=== PATIENT | female | born 1985 | race American Indian/Alaskan Native ===

== ENCOUNTER 2021-10-06 07:41 | Observation (INO) | payer OTHER ==
--- NOTE | 2021-09-30 11:58 | Anesthesia Consultation ---
Anesthesia Consult and Med Hx Date of service: 10/06/21 - Airway Anesthetic Teeth Evaluation: Good ROM Head & Neck: Adequate Mental/Hyoid Distance: Adequate Mallampati Class: Class II Intubation Access Assessment: Probably Good - Pulmonary Exam CTA: Yes - Cardiac Exam Cardiac Exam: RRR - Pre-Operative Health Status ASA Pre-Surgery Classification: ASA1 Proposed Anesthetic Plan: General Nerve Block: postop TAP prn - Pulmonary Hx Smoking: No Hx Asthma: No (childhood asthma, no inhaler use in many years) Hx Respiratory Symptoms: No - Cardiovascular System Hx Hypertension: No - Central Nervous System CVA: No - Endocrine Hx Renal Disease: No Hx Liver Disease: No Hx Insulin Dependent Diabetes: No Hx Non-Insulin Dependent Diabetes: No Hx Thyroid Disease: No - Other Systems Hx Obesity: No - Additional Comments Anesthesia Medical History Comments: No prior GA. No FHx anesthetic complications.
[2021-09-30 13:09] LABS: Hematocrit 41.7 % (30.3-42.9); Mean Corpuscular HGB Conc 34 % (30-34); Mean Corpuscular Volume 92 fl (79-97); Platelet Count 179 K/mm3 (140-440); Red Blood Count 4.55 M/mm3 (3.65-5.03); Red Cell Distribution Width 12.6 % (13.2-15.2)
[2021-09-30 13:30] LABS: Blood Urea Nitrogen 6 mg/dL (7-17); Calcium 9.1 mg/dL (8.4-10.2); Hemolysis Index 35
[2021-09-30 13:32] LABS: BUN/Creatinine Ratio 9
--- NOTE | 2021-10-01 19:58 | History and Physical Report ---
History of Present Illness Date of examination: 09/30/21 Date of admission: 10/05/2021 Chief complaint: pelvic pain. heavy bleeding History of present illness: Pt has heavy bleeding despite the mirena being in place, pelvic pressure, pain with sex depending on position and fullness of lower abdomen. Pt states she feeling a mass in lowere abdomen.Pt has h/o menomet that was resolved with the mirena but currently she is having monthly periods that are heavy with passing clots. Pt noted to have 7cm fundal fibroid on sonogram. She desires removal of uterus at this time. I advised pt and while the lavh is what is scheduled, she may need YOLY due to the size of the fibroid and inability to have enough exposure for vaginal removal. She expressed understanding and all questions were addressed and answered. Consents signed and placed on the chart. Mirena will be removed with the removal of the uterus. Past History : 4 Term Births: 3 Living Children: 3 Para: 3 Elect. Ab: 1 [employer] History Operations: Right knee 2006 ? infection 2006 ectopic Tubal Ligation Abnormal PAP: positive Infection History HIV Risk Eval: no Personal hx. of genital herpes: no Hx of STD: chlamydia Active Medications (reviewed today): IBUPROFEN 800 MG ORAL TABLET (IBUPROFEN) 1 po q6 hr prn pain IBUPROFEN () Current Allergies (reviewed today): No known allergies Past Medical History: Reviewed history from 11/26/2008 and no changes required: Negative Past Medical History Past Surgical History: Reviewed history from 01/30/2015 and no changes required: Right knee 2006 ? infection 2006 ectopic Tubal Ligation Family History Summary: Reviewed history Last on 01/04/2011 and no changes required:08/23/2021 General Comments - FH: Family History of Diabetes Family History of Hypertension No Family History of Breast Cancer No Family History of Cervical Cancer No Family History of Colon Cancer No Family History of Ovarvian Cancer Social History: Reviewed history from 08/17/2019 and no changes required: Vera guzman no e/t/d Patient is Smoking History: Patient currently smokes every day. Risk Factors: Smoked Tobacco Use: Former smoker Smokeless Tobacco Use: Never Passive Smoke Exposure: no HIV High Risk Behavior: no Exercise: no Seatbelt Use: 100 % PAP Smear History: Date of Last PAP Smear: 08/17/2021 Alcohol Use: no Drug Use: no Review of Systems General Denies fever, chills, sweats, anorexia, fatigue, weakness, malaise, weight loss and sleep disorder. Denies nausea, vomiting, headache, swelling of legs, abdominal pain, vaginal discharge, vaginal bleeding and contractions. Denies vaginal discharge, incontinence, dysuria, hematuria, urinary frequency, amenorrhea, menorrhagia, abnormal vaginal bleeding, pelvic pain, genital sores, decreased libido, painful periods, painful sex, urinary urgency, hot flashes, vaginal dryness, vaginal itching and vaginal odor. CV Denies chest pains, palpitations, syncope, dyspnea on exertion, orthopnea, PND and peripheral edema. Resp Denies cough, dyspnea at rest, excessive sputum, hemoptysis, wheezing and pleurisy. GI Denies nausea, vomiting, diarrhea, constipation, change in bowel habits, abdominal pain, melena, hematochezia, jaundice, gas/bloating, indigestion/heartburn, dysphagia and odynophagia. Endo Denies cold intolerance, heat intolerance, polydipsia, polyphagia, polyuria and unusual weight change. Breast Denies left breast lump, right breast lump, nipple discharge, bloody discharge from nipple, breast pain, abnormal mammogram and breast enlargement. MS Denies back pain, joint pain, joint swelling, muscle cramps, muscle weakness, stiffness, arthritis, sciatica, restless legs, leg pain at night and leg pain with exertion. Derm Denies rash, itching, dryness and suspicious lesions. Neuro Denies paralysis, paresthesias, headache, seizures, tremors, vertigo, transient blindness, frequent falls, frequent headaches and difficulty walking. Psych Denies depression, anxiety, irritability and mood swings. Eyes Denies blurring, diplopia, irritation, discharge, vision loss, eye pain and photophobia. ENT Denies earache, ear discharge, tinnitus, decreased hearing, nasal congestion, nosebleeds, sore throat and hoarseness. Allergy Denies urticaria, allergic rash, hay fever and recurrent infections. Heme Denies abnormal bruising, bleeding and enlarged lymph nodes. Past History Past Medical History: other (see hpi) Past Surgical History: other (see hpi) [employer] History: other (see hpi) Family/Genetic History: other (see hpi) Social history: other (see hpi) Medications and Allergies Allergies Allergy/AdvReac Type Severity Reaction Status Date / Time No Known Allergies Allergy Unverified 09/29/21 10:57 Home Medications Medication Instructions Recorded Confirmed Last Taken Type Tylenol 2 tab PO BID 09/29/21 09/29/21 Unknown History Active Meds: Active Medications Acetaminophen (Acetaminophen 500 Mg Tab) 1,000 mg PO PREOP CHELLE Stop: 10/06/21 23:01 Celecoxib (Celecoxib 200 Mg Cap) 200 mg PO PREOP NR Stop: 10/06/21 23:01 Gabapentin (Gabapentin 300 Mg Cap) 300 mg PO PREOP NR Stop: 10/06/21 23:01 Lactated Ringer's (Lactated Ringers) 1,000 mls @ 100 mls/hr IV DIRECT CHELLE Stop: 10/06/21 23:59 Midazolam HCl (Midazolam 2 Mg/2 Ml Inj) 2 mg IV PREOP NR Stop: 10/06/21 23:01 Scopolamine (Scopolamine Transdermal Patch 72 Hr) 1 each TD PREOP NR Stop: 10/06/21 23:01 Review of Systems All systems: negative - Vital Signs Vital signs: Vital Signs Temp Pulse Resp BP Pulse Ox 98.9 F 84 20 137/93 99 09/30/21 11:00 09/30/21 11:00 09/30/21 11:00 09/30/21 11:00 09/30/21 11:00 Temp Pulse Resp BP Pulse Ox 98.9 F 84 20 137/93 99 09/30/21 11:00 09/30/21 11:00 09/30/21 11:00 09/30/21 11:00 09/30/21 11:00 - Physical Exam Cardiovascular: Normal S1, Normal S2 Lungs: Positive: Clear to auscultation, Normal air movement Abdomen: Positive: normal appearance. Negative: soft, distention, tenderness, guarding Genitourinary (Female): Positive: other (deferred until EUA) Results Result Diagrams: 09/30/21 00:01 09/30/21 10:54 All other labs normal. Assessment and Plan - Patient Problems (1) Fibroid uterus Status: Acute Plan to address problem: -admit and prepare for lavh, iud removal -consents signed and placed on the chart. (2) Menorrhagia with regular cycle Status: Acute Plan to address problem: see #2 (3) Dysmenorrhea Status: Acute Plan to address problem: see #2
[~2021-10-06 07:41] MED LIST: ACETAMINOPHEN 500 MG TAB PO SCH; CELECOXIB 200 MG CAP PO NR; GABAPENTIN 300 MG CAP PO NR; LACTATED RINGERS 1,000 ML IV SCH; MIDAZOLAM 2 MG/2 ML INJ IV NR; SCOPOLAMINE TRANSDERMAL PATCH 72 HR TD NR; ceFAZolin/Water 2 GM/20 ML 2 GM/20 ML SYRINGE IV NR
[2021-10-06] MEDS ORDERED: HYDROmorphone 1 MG/1 ML INJ IV PRN (08:27)
[2021-10-06] MEDS ORDERED: ONDANSETRON 4 MG/2 ML INJ IV PRN (08:27)
--- NOTE | 2021-10-06 08:27 | Anesthesia Day of Surgery ---
Anesthesia Day of Surgery - Day of Surgery Patient Examined: Yes Patient H&P Reviewed: Yes Patient is NPO: Yes
[2021-10-06] MEDS ORDERED: dexAMETHasone 20 MG/5 ML VIAL ONE (09:15)
[2021-10-06] MEDS ORDERED: ONDANSETRON 4 MG/2 ML INJ ONE (09:15)
[2021-10-06] MEDS ORDERED: ROCURONIUM 50 MG/5 ML INJ IV ONE (09:15)
[2021-10-06] MEDS ORDERED: fentaNYL 100 MCG/2 ML INJ ONE ×2 (09:16→12:15)
[2021-10-06] MEDS ORDERED: HYDROmorphone 1 MG/1 ML INJ ONE ×2 (09:16→12:42)
[2021-10-06] MEDS ORDERED: propofoL 200 MG/20 ML VIAL IV ONE (09:16)
[2021-10-06] MEDS ORDERED: BUPIVACAINE/PF (0.5%) 5 MG/1 ML 30 ML VIAL INFILTRATI ONE ×2 (11:16→12:25)
[2021-10-06] MEDS ORDERED: SODIUM CHLORIDE 0.9% 100 ML ONE (11:16)
[2021-10-06] MEDS ORDERED: CITRIC ACID-SOD CITRATE 500 ML IV ONE (11:16)
[2021-10-06] MEDS ORDERED: VASOPRESSIN 20 UNIT/1 ML INJ ONE (11:16)
[2021-10-06] MEDS ORDERED: CITRIC ACID-SOD CITRATE SOLN 500 ML IV SOLN IV ONE (12:26)
[2021-10-06] MEDS ORDERED: SODIUM CHLORIDE 0.9% IRRIG SOLN 2000 ML IR ONE (12:26)
[2021-10-06] MEDS ORDERED: SODIUM CHLORIDE 0.9% IRR 1,500 ML BOTTLE IR ONE (12:26)
[2021-10-06] MEDS ORDERED: VASOPRESSIN 20 UNIT/1 ML INJ IM ONE (12:27)
[2021-10-06] MEDS ORDERED: SODIUM CHLORIDE 0.9% 100 ML IVPB IV ONE (12:27)
[2021-10-06] MEDS ORDERED: GLYCOPYRROLATE 0.4 MG/2 ML INJ ONE ×2 (13:33)
[2021-10-06] MEDS ORDERED: NEOSTIGMINE 10MG/10 ML INJ MDV ONE (13:33)
[2021-10-06] MEDS ORDERED: SUGAMMADEX SODIUM 200 MG/2 ML VIAL IV ONE (13:42)
--- NOTE | 2021-10-06 13:46 | Operative Report ---
Operative Report Operative Report: Date of procedure: 10/06/2021 Pre-operative diagnosis: Uterine fibroids Dysmenorrhea Menorrhagia Post-operative diagnosis: Same Procedure name(s): Laparoscopic assisted vaginal hysterectomy Bilateral salpingectomy Removal of intrauterine device Surgeon: Malinda Hart MD Alterations Manager: Dr. Cinthia Manuel Anesthesia: General EBL: 600 mL; 250 mL of Cell Saver given back Urine output: 200 mL of clear urine out at the end of the procedure Fluids: 2500 mL Findings: Enlarged uterus with an approximately 8 cm fundal fibroid noted. Consistency of uterus with that of adenomyosis. Normal ovaries bilaterally. No fallopian tubes identified. Indications: Patient presents with history of menorrhagia unresponsive to Mirena IUD. Patient desired definitive therapy. All risk benefits and alternatives were discussed with the patient. Consents were signed and placed on the chart. Procedure: Patient was taken to the operating room where she was placed under general endotracheal anesthesia. She was then prepped and draped in sterile fashion. It was at this point that the large [employer] uterine manipulator was placed inside of the uterus after the uterus was sounded to approximately 12 cm. Guardado catheter was also placed at this time. Attention was then turned to the umbilicus in which a supraumbilical incision was made. Under direct visualization the 5 mm trocar was placed inside the peritoneum the peritoneum was then insufflated. As at this point that the laparoscopic portion of the procedure was performed. 2 lateral 5 mm ports were also placed under direct visualization. Using the tripolar instrument the upper pedicles were cauterized and transected to the including round ligament with excellent hemostasis noted bilaterally. Attention was then turned vaginally. A weighted speculum was placed into the vagina and the cervix was grasped with a single-tooth tenaculum 2. The cervix was then injected circumferentially with Pitressin. The cervix was then circumferentially incised with the scalpel and the bladder dissected off of the pubovesical cervical fascia anteriorly with a sponge stick and Metzenbaum scissors. The same procedure was performed posteriorly and the posterior cul-de-sac was entered into sharply without difficulty. At this point a Dariusz Clamp was placed over the uterosacral ligaments on either side. These were then transected and suture ligated with 0 Vicryl. Hemostasis was assured. The cardinal ligaments were then clamped on both sides transected and suture ligated in similar fashion. The uterine arteries were then serially clamped with Dariusz clamps transected and suture ligated on both sides. Excellent hemostasis was visualized. After it was clear that the uterus had been completely from all pedicles the uterus was removed vaginally intact with cervix intact. The vaginal cuff angles were closed with figure of 8 stitches of 0 Vicryl on both sides. The peritoneum was incorporated in the stitching of the vaginal cuff. A series of interrupted figure of 8 sutures using 0 Vicryl were used to close the entire vaginal cuff. Excellent hemostasis was noted. The vagina was then irrigated copiously. Attention was then turned laparoscopically at which time. Again all pedicles were noted to be hemostatic. The ureters were identified bilaterally with peristalsis noted bilaterally. Surgicel powder was placed along the vaginal cuff. After several minutes the area was then irrigated. Excellent hemostasis was noted. All instruments were then removed from the abdomen and the vagina. All gas was released from the abdomen. The abdominal incisions were closed using 4-0 Monocryl. All of the abdominal incisions were injected with Marcaine without epi. Patient tolerated the procedure well sponge lap and needle counts were all correct 3 the patient was taken to the recovery room awake and in stable condition.
[2021-10-06] MEDS ORDERED: IBUPROFEN 800 MG TAB PO PRN (13:47)
[2021-10-06] MEDS ORDERED: MORPHINE 4 MG/1 ML INJ IV PRN (13:47)
[2021-10-06] MEDS ORDERED: ACETAMINOPHEN 325 MG TAB PO PRN (13:47)
[2021-10-06] MEDS ORDERED: ceFAZolin/NS 1 GM/50 ML 1 GM/50 ML BAG IV SCH (14:00)
[2021-10-06] MEDS: HYDROmorphone 1 MG/1 ML INJ IV PRN ×2 (14:17→14:27)
--- NOTE | 2021-10-06 14:33 | Post Anesthesia Evaluation ---
- Post Anesthesia Evaluation Patient Participated: Yes Airway Patent: Yes Stable Respiratory Function: Yes Nausea/Vomiting: No Temp > 96.8F: Yes Pain Manageable: Yes Adequeate Hydration: Yes Anesthesia Complications: No Block Receding Appropriately: Not Applicable Patient on Ventilator: No
[2021-10-06] MEDS: KETOROLAC 30 MG/1 ML INJ IV PRN ×2 (16:23→22:24)
--- NOTE | 2021-10-06 19:56 | Event Note ---
Date: 10/06/21 Called by RN and pt c/o discomfort and pressure with cath in. Advised it can be removed and place hat in toilet so that accurate UOP can be documented q hour. She expressed understanding and questions were addressed and answered.
[2021-10-07] MEDS: HYDROcodone/ACETAMINOPHEN 5-325 MG TAB PO PRN ×2 (02:15→09:31)
[2021-10-07 05:36] LABS: Hematocrit 30.1 % (30.3-42.9); Hemoglobin 10.3 gm/dl (10.1-14.3)
[2021-10-07] MEDS: KETOROLAC 30 MG/1 ML INJ IV PRN (06:27)
[2021-10-07 08:55] VITALS: BP 97/64
--- NOTE | 2021-10-07 09:31 | Discharge Summary ---
Providers - Providers Date of Admission: 10/06/21 13:47 Date of discharge: 10/07/21 Attending physician: CLAUDIO HERNANDEZ Primary care physician: [employer] Hospitalization Reason for admission: other (LAVH) Procedure: other (LAVH) Procedure details: SEE OP NOTES Incision: normal, dry, intact Hospital course: Pt s/p LAvh with IUD removal prior to procedure. Post op course has not been complicated. Will d/c home this am. Condition at discharge: Good Disposition: 01 HOME / SELF CARE / HOMELESS - Discharge Diagnoses (1) Fibroid uterus Status: Acute (2) Menorrhagia with regular cycle Status: Acute (3) Dysmenorrhea Status: Acute Plan - Discharge Medications Prescriptions: Docusate Sodium [Colace] 100 mg PO BID PRN #60 capsule PRN Reason: Constipation Ibuprofen [Motrin 800 MG tab] 800 mg PO Q8HR PRN #30 tablet PRN Reason: Pain, Moderate (4-6) oxyCODONE /ACETAMINOPHEN [Percocet 5/325] 1 tab PO Q4HR #30 tab - Provider Discharge Summary Activity: routine, no sex for 6 weeks, no heavy lifting 4 weeks, no strenuous exercise Diet: routine Instructions: routine Additional instructions: [] Smoking cessation referral if applicable(refer to patient education folder for contact #) [] Refer to [facility] Booklet Call your doctor immediately for: * Fever > 100.5 * Heavy vaginal bleeding ( >1 pad per hour) * Severe persistent headache * Shortness of breath * Reddened, hot, painful area to leg or breast * Drainage or odor from incision. * Keep incision clean and dry at all times and follow doctor's instructions regarding bathing/showering - Follow up plan Follow up: PRIMARY CARE, [Primary Care Provider] - 7 Days CLAUDIO HERNANDEZ MD [Staff Physician] - 7 Days Forms: [facility] Discharge Summary
--- NOTE | 2021-10-07 09:31 | Progress Note ---
Assessment and Plan - Patient Problems (1) Fibroid uterus Status: Acute (2) Menorrhagia with regular cycle Status: Acute (3) Dysmenorrhea Status: Acute (4) S/P laparoscopic assisted vaginal hysterectomy (LAVH) Status: Acute Plan to address problem: routine post op care d/c home this am f/u in the office in one week. Subjective - Subjective Date of service: 10/07/21 Principal diagnosis: POD#1 S/P LAVH Interval history: pt doing well. Tolerating a regular diet. Pain is well controlled. Pt desires d/c home today.Post op course has not been complicated. Patient reports: appetite normal, voiding normally, pain well controlled, ambulating normally, no dizzy ambulation Objective - Vital Signs Latest vital signs: Vital Signs Temp Pulse Resp Resp BP BP Pulse Ox 10/07/21 08:29 99 10/07/21 08:26 97.8 F 94 H 18 97/64 97 10/07/21 06:27 18 10/07/21 04:58 98.8 F 107 H 18 108/72 95 10/07/21 02:15 18 10/07/21 00:37 98.1 F 104 H 18 116/81 97 10/06/21 22:24 18 10/06/21 22:00 18 18 98 10/06/21 20:19 97.9 F 109 H 20 119/86 98 10/06/21 15:10 97.6 F 87 16 154/97 99 10/06/21 14:45 97.4 F L 73 16 140/90 100 10/06/21 14:30 72 16 148/92 100 10/06/21 14:15 70 16 142/92 100 10/06/21 14:05 79 16 156/97 100 10/06/21 14:00 87 18 147/93 100 10/06/21 13:56 97.2 F L 84 18 155/97 100 10/06/21 09:35 18 Intake and Output 10/06/21 10/07/21 10/07/21 22:59 06:59 14:59 Intake Total 358 120 120 Output Total 300 Balance 358 -180 120 Intake: Oral 358 120 120 Output: Urine 300 Void 300 Other: Total, Intake Amount 120 120 120 Total, Output Amount 100 Voiding Method Toilet Toilet Toilet - Exam Breasts: Present: deferred Cardiovascular: Present: Regular rate, Normal S1, Normal S2 Lungs: Present: Clear to auscultation, Normal air movement Abdomen: Present: normal appearance, soft, normal bowel sounds. Absent: distention, tenderness, guarding Deep Tendon Reflex Grade: Normal +2 Incision: Present: normal, dry, intact - Labs Labs: Abnormal lab results 10/07/21 Range/Units 05:03 Hct 30.1 L (30.3-42.9) %
--- NOTE | 2021-10-07 13:57 | Post Anesthesia Evaluation ---
- Post Anesthesia Evaluation Patient Participated: Yes Airway Patent: Yes Stable Respiratory Function: Yes Nausea/Vomiting: No Temp > 96.8F: Yes Pain Manageable: Yes Adequeate Hydration: Yes Anesthesia Complications: No Block Receding Appropriately: Yes Patient on Ventilator: No Other Comments: patient being discharged home
== END 2021-10-07 10:33 | disposition home or self-care (01) ==
LOC: OR 07:41 → OB 13:47
PROVIDERS: ADMIT Obstetrics & Gynecology; ATTEND Obstetrics & Gynecology
DX: D25.1 Intramural leiomyoma of uterus (principal); Z20.822 Contact with and (suspected) exposure to COVID-19; N92.0 Excessive and frequent menstruation with regular cycle; N94.6 Dysmenorrhea, unspecified; F17.210 Nicotine dependence, cigarettes, uncomplicated; Z98.51 Tubal ligation status; Z79.899 Other long term (current) drug therapy; Z98.890 Other specified postprocedural states
CPT/HCPCS: 36415; 58554; 80048; 84703; 85014; 85018; 85027; 86850; 86900; 86901; 88300; 88307; 96365; 96375; 96376; G0378; J0690; J1100; J1170; J1815; J1885; J2270; J2405; J2704; J2710; J3010; J3490; J7120; U0003; 88302; J2250